=== PATIENT | female | born 1985 | race Caucasian/White ===

== ENCOUNTER → 2022-12-14 13:30 | Outpatient (BNVA) | payer OTHER, SELFPAY | PROVIDERS: PCP Internal Medicine; Visit Provider Surgery | DX: K64.8 Other hemorrhoids (principal); K64.4 Residual hemorrhoidal skin tags | CPT/HCPCS: 46600; 99202 ==

== ENCOUNTER 2023-01-06 07:06 | Day surgery (SDC) | payer OTHER, SELFPAY ==
[2023-01-04 12:39] VITALS: BMI 21.0
[2023-01-06] VITALS (12 sets, daily range): BP systolic 101–124; BP diastolic 41–76; PULSE 52–92; RESP 16–20; TEMP 36.1–36.3; O2SAT 92–100; BMI 20.5
[2023-01-06] MEDS: Lactated Ringers 1,000 ML 50 ML IVCONT (07:51)
--- NOTE | 2023-01-06 08:01 | MHC.SHP ---
Pre-Procedural Eval Section A Date of Service: 01/06/23 Section B Chief Complaint: Other hemorrhoids Allergies: Allergies Allergy/AdvReac Type Severity Reaction Status Date / Time No Known Allergies Allergy Verified 12/14/22 13:44 Plan I have reviewed the history and physical and performed a pertinent physical examination on my patient. No changes have occurred unless specified. Time Spent With Patient Time: Total time managing care of this patient today ____ minutes.
--- NOTE | 2023-01-06 08:43 | P.CONAN_ITS ---
[facility] Active Problems Active Problems: All Active Problems (Updated 01/06/23 @ 07:53 by Lidia Weaver RN) Hemorrhoids with complication (Acute) Past Medical History Medical History Follow-up examination after gynecological surgery Hemorrhoids with complication Status post gynecological surgery, follow-up exam Functional capacity: independent ambulation Patient : No Family History Family History Mother Brain cancer Family history of problems with anesthesia: No Surgical History Surgical History H/O hysterectomy for benign disease History of eye surgery History of Problems with Anesthesia: No Social History Social History Alcohol intake: current Alcohol intake frequency: holidays/special occasions only Alcohol type: beer Patient Tobacco Use Status: Never used Tobacco Use of substances other than those prescribed or required for medical reasons: Yes Substance Use Type: Marijuana Substance Use Type Other:: cbd Are you DNR?: No Advance Directives: No Advance Directives Information Provided: Yes Meds Allergies Allergy/AdvReac Type Severity Reaction Status Date / Time strawberry Allergy Unknown Verified 01/06/23 08:25 epinephrine AdvReac Unknown Verified 01/06/23 08:24 Active Medications: Current Medications Lactated Ringer's (Lr) 1,000 mls @ 50 mls/hr IVCONT .Q20H GROVER Last Admin: 01/06/23 07:51 Dose: 50 mls/hr Cefotetan Disodium 2 gm/ (Sodium Chloride) 50 mls @ 100 mls/hr IV PREOP ONE Stop: 01/06/23 08:47 Exam Exam Date and Time: January 06, 2023 0843 Height,Weight and Vital Signs: Height 5 ft 2 in Weight 50.802 kg Last Vital Signs Temp 97.4 F 01/06/23 07:35 Pulse 56 01/06/23 07:35 Resp 18 01/06/23 07:35 BP 106/41 L 01/06/23 07:35 Pulse Ox 98 01/06/23 07:35 O2 Del Method Room Air 01/06/23 07:35 Airway Mallampati Class: I TM Dist: >3cm Neck ROM: Full Heart: RRR Lungs: CTA Assessment and Plan Final Anesthetic Review Family History of Problems with Anesthesia: No History of Problems with Anesthesia: No ASA Class: II Final Preanesthetic Review: Meds/Allgs Chart Reviewed, Consent Obtained/Reviewed and Anes Risks/Benef Reviewed Patient Risk: Low Procedure Risk: Low Anesthetic Plan Anesthetic Plan: GA Disposition: Standard PACU
--- NOTE | 2023-01-06 09:08 | W.PM.OPN ---
Operative Note Operative Note Date of Service: 01/06/23 Narrative: Preop diagnosis: Internal, external hemorrhoids with prolapse and pain Postop diagnosis: The same Procedure: Exam under anesthesia hemorrhoidectomy x3 columns Surgeon: Oumar Cormier MD The patient is a 37-year-old female with complaints frequent prolapse and pain and discomfort with her hemorrhoids. She wanted to proceed with hemorrhoidectomy. She understood the planned procedure as well as the risks, benefits, and alternatives. She was brought to the operating room. She was placed in prone luis-knife position under general anesthesia via endotracheal tube. The buttocks were retracted with wide tape laterally. The perianal area was prepped and draped in the usual sterile fashion. A surgical time-out was done. The patient received Cefotan 2 g IV preoperatively. I infiltrated the perianal area with lidocaine 1%. Examination of the anal orifice revealed a moderate-sized hemorrhoidal column, most external on the right posterior. Smaller hemorrhoidal columns were seen on the right anterior as well as the left lateral. I inserted abuse Richard retractor. I examined the anal canal circumferentially. The hemorrhoidal columns were again seen. The right posterior hemorrhoidal column appeared to be a mix of internal and external. There were no lesions in the anal canal. There was no fissure or any induration. I applied a Del Rosario grasper at the largest hemorrhoidal column which was on the right posterior. This was used to retract this into the field. I made a figure of 8 stitch at its pedicle using a chromic 3-0. I made an incision on this hemorrhoidal column to the perianal skin with a blade 15. I excised this hemorrhoidal column above the plane of sphincters with scissors. I closed with incision with a running chromic 3-0 stitch. The hemorrhoidal column on the right anterior which was smaller was also removed in the similar fashion. This was closed as well with a chromic 3-0 running stitch. The small external hemorrhoidal column on the the left was noted to be prominent as well. This was grasped with the Del Rosario grasper. A figure of 8 stitch at it is pedicle was mayusing a chromic 3-0 as well and an incision was made around this using blade 15. This hemorrhoidal column was excised above the plane of sphincters using scissors and the incision was closed with a running chromic 3-0 stitch . Additional hemostatic [id number] sutures were placed for oozing areas. Once hemostasis was confirmed, I infiltrated the perianal area with Marcaine 0.5% for postop analgesia. The procedure was completed. The patient tolerated procedure well. There were no immediate complications. Initial and final counts of sponges and instruments were correct. Estimated blood loss about 25 cc. The patient was extubated without difficulty and transferred to recovery room with stable vital signs.
--- NOTE | 2023-01-06 09:28 | HO.POSTANES ---
Post Anesthesia Evaluation Post Anesthesia Evaluation Date of Service: 01/06/23 Vital Signs: Vital Signs Temp Pulse Resp BP Pulse Ox O2 Del Method 01/06/23 07:35 97.4 F 56 18 106/41 L 98 Room Air Anesthesia: General Endotracheal-GETA and General LMA Mental Status: Awake Pain Control: Satisfactory Nausea/Vomiting: None Hydration: Adequate Anesthesia-Related Issues: No Anes. Related Issues
[2023-01-06] MEDS: fentaNYL citrate/PF 100 MCG/2 ML VIAL 25 MCG IVPUSH ×2 (09:51→10:06)
[2023-01-06] MEDS: ondansetron HCL 4 MG/2 ML VIAL IVPUSH (10:23)
[2023-01-06] MEDS: oxyCODONE HCl Immed Release 5 MG TABLET PO (10:23)
== END 2023-01-06 11:03 | disposition home or self-care (01) ==
PROVIDERS: PCP Internal Medicine; Visit Provider Surgery
PROC: (CPT 46260; principal; 2023-01-06 08:30)
DX: K64.8 Other hemorrhoids (principal); K64.4 Residual hemorrhoidal skin tags; F12.90 Cannabis use, unspecified, uncomplicated
CPT/HCPCS: 46260; 88304; J2250; J2405; J2795; J3010

== ENCOUNTER → 2023-01-16 10:40 | Outpatient (BNVA) | payer OTHER, SELFPAY | PROVIDERS: PCP Internal Medicine; Visit Provider Surgery ==

== ENCOUNTER 2023-01-23 10:11 | Outpatient (AMB) | payer OTHER, SELFPAY ==
--- NOTE | 2023-01-23 10:23 | MHC.OFFVIS ---
Intake Vital Signs 01/23/23 10:36 BP 100/62 Blood Pressure Location Rt brachial Position Standing Pulse 95 Intake Visit Reasons: S/P hemorroidectomy Intake Note: This patient presents for a post-op follow-up assessment status post hemorrhoidectomy. Patient c/o; no changes. Top Trimmer Required: No Accompanied by: Self / Same As Patient Allergies strawberry Allergy (Verified 01/30/23 14:12) Unknown epinephrine Adverse Reaction (Verified 01/30/23 14:12) Unknown HPI S/P hemorroidectomy HPI Details She is here for follow-up her hemorrhoidectomy last 01/06/2023. She feels frustrated as she thinks that she has taken a step back with her healing. She says that the edema on the hemorrhoidectomy sites seem to be persistent. She also describes seeing blood especially with bowel movements. She continues to have pain discomfort especially with bowel movements. However she has been avoiding narcotics and has been trying to find a balance between frequency of her bowel movements as well as the consistency. She does have a history of irregular bowel habits. [facility] Medical History delivery delivered Follow-up examination after gynecological surgery Hemorrhoids with complication Status post gynecological surgery, follow-up exam Surgical History H/O hysterectomy for benign disease History of eye surgery History of hemorrhoidectomy (~01/06/23) Family History Mother Brain cancer Social History Alcohol intake: current Alcohol intake frequency: holidays/special occasions only Alcohol type: beer Patient Tobacco Use Status: Never used Tobacco Substance Use Type: Marijuana Review of Systems Const Denies chills and Denies fever(s) GI Reports hematochezia Physical Exam Vital Signs: Last Vital Signs Pulse 95 01/23/23 10:36 BP 100/62 01/23/23 10:36 Const Other: Appears anxious General: comfortable and no acute distress Resp Effort & Inspection: normal respiratory effort GI Other: Rectal exam - residual edema surrounding the hemorrhoidectomy sites but the hemorrhoidectomy site itself seems to be healing well without any induration, cellulitis or discharge Assessment & Plan Assessment & Plan (1) Hemorrhoids with complication: Code(s): K64.8 - Other hemorrhoids Plan: Status post hemorrhoidectomy. She is bothered by the edema surrounding her hemorrhoidectomy sites as she thought that she had been doing well on the 1st 4 or 5 days postoperatively. She feels that having been constipated with hard stools postop had aggravated her hemorrhoidectomy sites. I explained to her that at this time, having this significant edema is not unusual. I told her that it may take some time for this to resolve but she should continue with her hot Sitz baths. She is not taking narcotics anymore as she feels that this does not help with her movements. She says that the pramoxine has been using help so we will prescribe this for her. I advised her to remain patient as it is not unusual to have significant edema and pain at this point post hemorrhoidectomy. I will see her again in the office next week. Medications: New pramoxine 1% 1 appl topical TID-QID PRN 340 grams 0RF anal pain Coding Level of Care Code Global (18723) Diagnoses Hemorrhoids with complication K64.8
[2023-01-23 10:36] VITALS: BP 100/62; PULSE 95
== END 2023-01-23 11:08 | disposition home or self-care (01) ==
PROVIDERS: PCP Internal Medicine; Visit Provider Surgery
DX: K64.8 Other hemorrhoids (principal)
CPT/HCPCS: 99024

== ENCOUNTER → 2023-01-23 10:11 | Outpatient (BNVA) | payer OTHER, SELFPAY | PROVIDERS: PCP Internal Medicine; Visit Provider Surgery ==

== ENCOUNTER 2023-01-30 13:56 | Outpatient (AMB) | payer OTHER, SELFPAY ==
--- NOTE | 2023-01-30 14:04 | MHC.OFFVIS ---
Intake Vital Signs 01/30/23 14:11 BP 110/67 Blood Pressure Location Rt brachial Position Standing Pulse 87 Intake Visit Reasons: S/P hemorroidectomy, 1 wk follow up Intake Note: This patient presents for a one week follow-up assessment status post hemorrhoidectomy. Patient c/o; no improvements or changes since last visit. Internal Auditor Required: No Accompanied by: Self / Same As Patient Allergies strawberry Allergy (Verified 01/30/23 14:12) Unknown epinephrine Adverse Reaction (Verified 01/30/23 14:12) Unknown HPI S/P hemorroidectomy, 1 wk follow up HPI Details She is here for follow-up after hemorrhoidectomy. She says is feeling much better. She still has some pain and difficulty with bowel movements but definitely much improved. She still feels some swelling in the hemorrhoidectomy site. [facility] Medical History delivery delivered Follow-up examination after gynecological surgery Hemorrhoids with complication Status post gynecological surgery, follow-up exam Surgical History H/O hysterectomy for benign disease History of eye surgery History of hemorrhoidectomy (~01/06/23) Family History Mother Brain cancer Social History Alcohol intake: current Alcohol intake frequency: holidays/special occasions only Alcohol type: beer Patient Tobacco Use Status: Never used Tobacco Substance Use Type: Marijuana Review of Systems Const Denies chills and Denies fever(s) Card Denies dyspnea Resp Denies dyspnea GI Reports hematochezia and Reports constipation Physical Exam Vital Signs: Last Vital Signs Pulse 87 01/30/23 14:11 BP 110/67 01/30/23 14:11 Const General: comfortable and no acute distress GI Other: Rectal exam - still with residual edema from hemorrhoidectomy site but less, no redness, no discharge Assessment & Plan Assessment & Plan (1) Hemorrhoids with complication: Code(s): K64.8 - Other hemorrhoids Plan: Status post hemorrhoidectomy. She subjective feels much better. Her pain is much improved. She still has some edema and I told her to continue doing warm soaks to the area. I advised her to continue doing the same bowel regimen. I will see her again in the office in about 2 weeks. Coding Level of Care Code Global (16888) Diagnoses Hemorrhoids with complication K64.8
[2023-01-30 14:11] VITALS: BP 110/67; PULSE 87
== END 2023-01-30 14:33 | disposition home or self-care (01) ==
PROVIDERS: PCP Internal Medicine; Visit Provider Surgery
DX: K64.8 Other hemorrhoids (principal)
CPT/HCPCS: 99024

== ENCOUNTER → 2023-01-30 13:56 | Outpatient (BNVA) | payer OTHER, SELFPAY | PROVIDERS: PCP Internal Medicine; Visit Provider Surgery ==